=== PATIENT | female | born 1940 | race Caucasian/White ===

== ENCOUNTER 2019-04-10 15:17 | Emergency (ER) | payer MEDICARE, OTHER, SELFPAY ==
[2019-04-10 12:58] VITALS: BP 189/88; PULSE 57; RESP 16; TEMP 36.8; O2SAT 92; BMI 26.6
--- NOTE | 2019-04-10 13:05 | CT_ITS ---
WS: [id number] CT HEAD TECHNIQUE: Noncontrast CT of the head obtained from the skullbase to the vertex. CLINICAL INFORMATION: fall injury COMPARISON: CT 7 7,015 DLP: 790.[address] scans at [facility] use at least one of these dose optimization techniques: automat ed exposure control; mA and/or kV adjustment per patient size (includes targeted exams where dose is matched to clinical indication); or iterative reconstruction. FINDINGS: No evidence of intracranial hemorrhage or mass effect. Soft tissue and scalp hematoma overlying the l eft frontal lobe and superior orbit. No visualized fractures. Sinuses and mastoid air cells are well aerated. Right supraclinoid ICA embolization coils. Associated beam hardening artifact. Mild small vessel oconnell ges. Mild parenchymal Loss. Normal posterior fossa. Vascular calcification. Ventricular system and basal cisterns are paten t. Paranasal sinuses and mastoid air cells are well aerated. . Message left for Alma Diaz M.D. at 04/10/2019 2:[address]/CT head wo con* [id number] IMPRESSION: 1. No evidence of intracranial hemorrhage or mass effect. 2. Large left frontal scalp hematoma. No visualized fractures. 3. Right supraclinoid ICA embolization coils. 4. Mild small vessel changes. Mild parenchymal volume loss. 5.
--- NOTE | 2019-04-10 13:05 | XR_ITS ---
WS: [id number] Humerus LEFT TECHNIQUE: 2 views of the left humerus CLINICAL INFORMATION: trauma COMPARISON: None. FINDINGS: Angulated displaced fracture involving the midshaft left humerus. Lateral angulation of the distal fr agment with approximately one shaft width displacement. Soft tissue edema. Normal visualized AC joint . XR/[place] [id number] IMPRESSION: Angulated displaced fracture mid shaft left humerus with lateral angulation of the distal fragment
--- NOTE | 2019-04-10 13:05 | W.ED.FALL ---
HPI - Fall General: Chief Complaint: Fall Stated Complaint: Fall History of Present Illness: HPI Narrative: Patient reports tripping and falling in the bathroom over a rug and hurting her left upper arm. Patient was given fentanyl 100 mcg in route by ambulance. Patient also hit the side of her head against the tub. Patient denied any loss of consciousness. Patient appears well. Patient appears in mild to moderate pain. Patient reports as long as she holds her left upper arm in a bent position across her chest she is able to control the pain. Review of Systems General: Reports: 10 or more systems reviewed and unremarkable except in HPI and below Musc: Reports: extremity pain (left upper arm) and extremity swelling (left upper arm) PFSH ED PFSH: Statuses (acute, chronic, etc) shown below reflect problem list status as previously entered and may not be historically accurate Social History Smoking and tobacco status: never smoked Physical Exam Const: COMMON NORMALS: no apparent distress and oriented x3 GENERAL APPEARANCE: cooperative HENMT: COMMON NORMALS: external ears normal, EAC's normal, TM's normal bilaterally and external nose normal HEAD & SCALP: contusion (left forehead) HEAD IMAGES: 1. hemotoma, contusion FACE & SINUS: normal facial exam NOSE: external nose normal GENERAL EAR: hearing not grossly impaired EXTERNAL EAR: Yes external ears normal EXTERNAL AUDITORY CANAL: EAC's normal TYMPANIC MEMBRANE: TM's normal bilaterally MOUTH: oral and palatal mucosa normal THROAT: posterior oropharynx normal Eye: COMMON NORMALS: PERRL and EOMs intact bilaterally PUPIL: Yes PERRL Neck/C-Spine: COMMON NORMALS: full ROM and no lymphadenopathy Lymph: LYMPHATIC: no lymphedema noted Chest: COMMONS NORMALS: inspection of chest normal and palpation of chest normal Resp: COMMON NORMALS: normal respiratory effort and clear to auscultation bilaterally AUSCULTATION: clear to auscultation bilaterally Cardio: COMMON NORMALS: regular rate and regular rhythm RATE: regular rate RHYTHM: regular rhythm GI: COMMON NORMALS: normal to inspection, nondistended, normoactive bowel sounds and non-tender : COMMON NORMALS: Yes no CVA tenderness BLADDER/KIDNEY EXAM: Yes no CVA tenderness Back/Pelvis: COMMON NORMALS: no CVA tenderness and thoracic and lumbar spine normal to inspection Extremity: GENERAL: Yes edema (left distal upper arm) LEFT UPPER EXTREMITY: Yes upper arm (distal deformity to left upper arm) Neuro: COMMON NORMALS: oriented x3, moves all extremities and no focal motor deficits Psych: COMMON NORMALS: mental status grossly normal and cooperative Skin: COMMON NORMALS: no rashes or lesions noted GENERAL SKIN EXAM: no rashes or lesions noted Course ED course: 1344, Discussed with abnormal xray of humerus, recommended discussion with Dr. Pierre, electronic intelligence officer orthopedist. wjw 1354, Dr. Pierre contacted will come to see patient in the ER for further evaluation and discussion with patient for further treatment. wjw 1427, Dr. Pierre seen patient with recommendation for treatment. wjw Vital Signs: Vital signs: Vital Signs Temperature 98.2 F 04/10/19 12:58 Pulse Rate 57 L 04/10/19 12:58 Respiratory Rate 18 04/10/19 14:35 Blood Pressure 189/88 04/10/19 12:58 Pulse Oximetry 98 04/10/19 14:35 MDM - Fall MDM Narrative: Medical decision making narrative: Patient comes in today for complaints of fall injury. Patient had side of the tub with her head and also hurt her left upper arm. Exam noted deformity to the left upper arm. Pulses were intact distally. Neurovascular check was normal. Patient also had a hematoma to the left frontal scalp area. Differential diagnosis includes skull fracture, intracranial bleeding, fracture of the humerus, contusion, abrasions. X-ray of the left upper arm noted a shaft humeral fracture. CT of head noted no intracranial bleeding or skull fracture. Laboratory values were insignificant. Reviewed exam with Dr. Mejia who recommended consult with Dr. Pierre for fracture of the humerus. Dr. Pierre came over and evaluated patient recommended splinting and follow-up in his office. Family was agreeable to plan as well as patient. Patient was splinted and reported improvement in pain. Patient was discharged with prescription for pain medication and instructed to use stool softener to prevent constipation. Patient reported understanding. Lab Data: Labs: Lab Results 04/10/19 04/10/19 Range/Units 14:03 14:03 WBC 10.2 H (4.0-10.0) 10^3/ uL RBC 4.69 (4.1-5.3) 10^6/u L Hgb 13.9 (11.5-15.3) g/dL Hct 43.6 (37.0-47.0) % MCV 93.0 (81-99) fL MCH 29.6 (28.0-34.0) pg MCHC 31.9 (30.0-36.0) g/dL RDW 12.5 (12.1-15.1) % Plt Count 230 (130-400) 10^3/c mm MPV 11.3 H (7.4-10.4) fL Neut % (Auto) 78.9 % Lymph % (Auto) 14.5 % Davison % (Auto) 5.6 % Eos % (Auto) 0.4 % Baso % (Auto) 0.3 % Neut # (Auto) 8.0 H (1.8-7.7) 10^3/u L Lymph # (Auto) 1.5 (0.8-4.8) 10^3/u L Davison # (Auto) 0.6 (0.2-0.9) 10^3/u L Eos # (Auto) 0.0 (0.0-0.8) 10^3/u L Baso # (Auto) 0.0 (0.0-0.1) 10^3/u L Nucleated RBC % (a uto) 0 % Nucleated RBCs # 0.0 /100WBC Sodium 137 (136-145) mmol/L Potassium 3.4 L (3.5-5.1) mmol/L Chloride 100 (98-107) mmol/L Carbon Dioxide 24 (22-29) mmol/L Anion Gap 16.4 (5-19) BUN 12 (8-23) mg/dL Creatinine 0.6 (0.5-0.9) mg/dL Glucose 134 H (74-106) mg/dL Calcium 10.1 (8.8-10.2) mg/Dl Total Bilirubin 0.4 (0.15-1.2) mg/dL AST 18 (0-32) U/L ALT 16 (0-33) U/L Alkaline Phosphata se 70 (35-105) IU/L Total Protein 7.0 (6.6-8.7) g/dL Albumin 4.3 (3.5-5.2) g/dL Globulin 2.7 (1.3-4.6) g/dL Discharge Plan Discharge Patient Disposition: Home, Self-Care Clinical Impression: Fall from other slipping, tripping, or stumbling Closed left humeral fracture Qualifiers: Encounter type: initial encounter Humerus Location: shaft Fracture morphology: transverse Fracture alignment: displaced Qualified Code(s): S42.322A - Displaced transverse fracture of shaft of humerus, left arm, initial encounter for closed fracture Hematoma of frontal scalp Qualifiers: Encounter type: initial encounter Qualified Code(s): S00.03XA - Contusion of scalp, initial encounter Condition: Stable Prescriptions: New hydrocodone-acetaminophen 5-325 mg tablet 1 tab PO Q4H PRN (Reason: pain) Qty: 20 RF: 0 ondansetron HCl 4 mg tablet 4 mg PO Q8H PRN (Reason: nausea and vomiting) Qty: 10 RF: 0 Discharge Orders: Discharge Order (Routine); Ordered 04/10/19 Ordered By: Yobany Estes Referrals: Gabriel Pelayo MD [Primary Care Provider] - Discharge Diet: Usual diet Discharge Activity: Resume usual activity Patient Instructions: Arm Fracture in Adults (ED) Activity Restrictions/Additional Instructions: Home and rest Activity as tolerated Wear splint and sling as directed Follow-up with Dr. Pierre on Saturday as scheduled Return to ER as needed for any concerns Coding Level of Care Code ED Security Advisor for Jami Fwd Exam Problem Focused
[2019-04-10 14:14] VITALS: RESP 18; O2SAT 98
[2019-04-10] MEDS: fentaNYL 50 mcg/mL INJ 2mL IVP (14:14)
[2019-04-10 14:17] LABS: Basophils % 0.3 %; Eosinophils % 0.4 %; Hematocrit 43.6 % (37.0-47.0); Hemoglobin 13.9 g/dL (11.5-15.3); Lymphocytes # 1.5 10^3/uL (0.8-4.8); Lymphocytes % 14.5 %; Mean Corpuscular HGB Conc 31.9 g/dL (30.0-36.0); Mean Corpuscular Hemoglobin 29.6 pg (28.0-34.0); Mean Platelet Volume 11.3 fL (7.4-10.4); Monocytes # 0.6 10^3/uL (0.2-0.9); Monocytes % 5.6 %; Neutrophils % 78.9 %; Nucleated Red Blood Cells % 0 %; Platelet Count 230 10^3/cmm (130-400); Red Blood Count 4.69 10^6/uL (4.1-5.3); Red Cell Distribution Width 12.5 % (12.1-15.1); White Blood Count 10.2 10^3/uL (4.0-10.0)
[2019-04-10 14:35] VITALS: RESP 18; O2SAT 98
[2019-04-10] MEDS: morphine 4 mg/mL SDV 1 mL 2 MG IVP (14:35)
[2019-04-10] MEDS: ondansetron 2 mg/ML SDV 2 mL 4 MG IVP ×2 (14:37→15:26)
[2019-04-10 14:39] LABS: Alanine Aminotransferase 16 U/L (0-33); Albumin Level 4.3 g/dL (3.5-5.2); Alkaline Phosphatase 70 IU/L (35-105); Anion Gap 16.4 (5-19); Aspartate Amino Transferase 18 U/L (0-32); Blood Urea Nitrogen 12 mg/dL (8-23); Calcium 10.1 mg/Dl (8.8-10.2); Carbon Dioxide 24 mmol/L (22-29); Chloride 100 mmol/L (98-107); Globulin 2.7 g/dL (1.3-4.6); Glucose 134 mg/dL (74-106); Potassium 3.4 mmol/L (3.5-5.1); Sodium 137 mmol/L (136-145); Total Bilirubin 0.4 mg/dL (0.15-1.2)
[2019-04-10 15:27] VITALS: BP 124/68; PULSE 72; RESP 18; O2SAT 96
--- NOTE | 2019-04-13 08:10 | DCPLANNER ---
district manager was asked to schedule a follow up appointment for patient with ortho. district manager called ortho, spoke with Pat, gave clinic patients information. district manager was told that patients information would be printed and reviewed. Clinic will call director of casework and patient with appointment information.
--- NOTE | 2019-04-14 14:38 | DCPLANNER ---
Patient had an appointment scheduled for 04.14.[address] Pierre at ortho. Patient attended the appointment.
== END 2019-04-10 15:29 | disposition home or self-care (01) ==
LOC: ER 15:33
PROVIDERS: Nurse Practitioner Family; Emergency Provider Emergency Medicine; Family Provider Family Medicine; PCP Family Medicine
DX: S00.03XA Contusion of scalp, initial encounter (principal); S42.322A Displaced transverse fracture of shaft of humerus, left arm, initial encounter for closed fracture; W18.09XA Striking against other object with subsequent fall, initial encounter; Y92.002 Bathroom of unspecified non-institutional (private) residence as the place of occurrence of the external cause
CPT/HCPCS: 36415; 70450; 73060; 80053; 85025; 96374; 96375; 99281; J2270; J2405; J3010

== ENCOUNTER → 2019-04-14 10:03 | Outpatient (BNVA) | payer MEDICARE, OTHER, SELFPAY | PROVIDERS: Family Provider Family Medicine; PCP Family Medicine; Referring Provider Nurse Practitioner Family; Visit Provider Orthopaedic Surgery | DX: S42.492A Other displaced fracture of lower end of left humerus, initial encounter for closed fracture (principal); X58.XXXA Exposure to other specified factors, initial encounter | CPT/HCPCS: 73060 ==

== ENCOUNTER → 2019-05-12 13:09 | Outpatient (BNVA) | payer MEDICARE, OTHER, SELFPAY | PROVIDERS: Family Provider Family Medicine; PCP Family Medicine; Visit Provider Orthopaedic Surgery | DX: S42.492A Other displaced fracture of lower end of left humerus, initial encounter for closed fracture (principal); X58.XXXA Exposure to other specified factors, initial encounter | CPT/HCPCS: 73060 ==

== ENCOUNTER → 2019-06-09 13:24 | Outpatient (BNVA) | payer MEDICARE, OTHER, SELFPAY | PROVIDERS: Family Provider Family Medicine; PCP Family Medicine; Visit Provider Orthopaedic Surgery | DX: S42.302A Unspecified fracture of shaft of humerus, left arm, initial encounter for closed fracture (principal); X58.XXXA Exposure to other specified factors, initial encounter | CPT/HCPCS: 73060 ==

== ENCOUNTER 2020-10-29 06:00 | Outpatient (CLI) | payer MEDICARE, OTHER, SELFPAY ==
[2020-10-29 07:25] VITALS: BP 145/84; PULSE 71; RESP 18; TEMP 36.6; O2SAT 98; BMI 29.2
--- NOTE | 2020-10-29 07:55 | A.OFFVIS_ITS ---
Patient Information Referred by: Dr. Matos Symptom onset date: 10/21/20 COVID 19 common symptoms: positive fever(s), chills, cough, fatigue, body aches, headache(s), loss of sense of smell and/or taste, nasal congestion and nausea Severity: moderate Treatment prior to arrival: none Other details: Results from [employer] verified by myself [facility] COVID test results: No Data to Display outside results available, scanned Criteria/Plan Inclusion/Exclusion Criteria weight >/= 40kg, + direct test </= 10 days ago and symptom onset </= 10 days ago age >/= 65 not requiring hospitalization, not requiring oxygen (if not chronically on oxygen) and no increase oxygen requirement (if chronically on oxygen) Patient education patient/family/caregiver received/reviewed fact sheet, Emergency Use Authorization/unapproved drug status discussed with patient/family/caregiver, alternatives to this treatment discussed with patient/family/caregiver, risks and benefits of medication reviewed with patient/family/caregiver, patient/family/caregiver given opportunity for questions, which were answered and patient consents to receiving Monoclonal Antibody Treatment Plan for treatment Meets criteria for Monoclonal Antibody infusion
--- NOTE | 2020-10-29 10:41 | PC.NURSE ---
pt left by POV. Pt driving.
== END 2020-10-29 06:01 | disposition home or self-care (01) ==
LOC: OPS 08-10 14:55
PROVIDERS: PCP Family Medicine; Visit Provider Family Medicine
DX: U07.1 COVID-19 (principal)
CPT/HCPCS: 96365

== ENCOUNTER → 2021-11-06 14:49 | Outpatient (BNVA) | payer MEDICARE, OTHER, SELFPAY | PROVIDERS: PCP Family Medicine; Visit Provider Podiatrist Foot & Ankle Surgery | DX: R52 Pain, unspecified (principal); M19.072 Primary osteoarthritis, left ankle and foot; M21.612 Bunion of left foot | CPT/HCPCS: 73630; 99204 ==

== ENCOUNTER → 2021-11-17 09:03 | Day surgery (SDC) | payer MEDICARE, OTHER, SELFPAY ==
[2021-11-16 11:00] VITALS: BMI 31.6
[2021-11-17] VITALS (10 sets, daily range): BP systolic 121–169; BP diastolic 78–115; PULSE 51–63; RESP 12–18; TEMP 36.1–36.6; O2SAT 91–95
--- NOTE | 2021-11-17 | SCC_ITS ---
Procedure done: Bunionectomy with double osteotomy left foot CPT code 86057 2 seconds of fluoroscopic guidance, for a cumulative dose of 0.04 mGy, was provided to Dr. Hernandez by the radiology department. C-arm images of the LEFT foot were saved for the patient's permanent record. [facility]
--- NOTE | 2021-11-17 06:24 | W.PM.OPSUD ---
Surgery/Procedure H&P Update DATE OF PROCEDURE: November 17, 2021 DATE H&P PERFORMED: 11/06/21 CHANGES TO PREVIOUS DOCUMENTATION: None PRIMARY INDICATION FOR PROCEDURE: Painful left bunion PLANNED PROCEDURE: Operation Date: 11/17/21 10:40 Proposed Procedures p Left bunionectomy 29321,M21.612(Left) - Pantera Hernandez DPM
--- NOTE | 2021-11-17 06:25 | P.OP_ITS ---
Operative Report Date of procedure: November 17, 2021 Pre-op diagnosis: Left bunion Post-op diagnosis: left bunion Post-op findings: None Procedure done: Bunionectomy with double osteotomy left foot CPT code 68939 Implants: [place] 28 3 mm x 16 mm headed partially-threaded cannulated screw and [place] 28 10mm x 10 mm step-off staple at the Ifeanyi osteotomy, 3-0 Vicryl, 4-0 Vicryl, 4-0 nylon 10 cc of Exparel with 10 cc of saline Specimens removed/disposition: None Pathology: None Surgeon: Pantera Hernandez D.P.M. Blind Hooker: Nelson Estimated blood loss: 5 29 IV fluids: None Urine output: 0 Complications: None Findings: None Brief History: Patient has failed conservative treatment management for several years that has built up to this point where she is wishing to discuss surgical correction of her left painful bunion deformity.? Management at home has consisted of wider shoes, padding and spacing, activity modifications, topical and oral anti- inflammatories without success.? Bunionectomy with double osteotomy with risks including but not limited to pain, bleeding, numbness, infection, hardware failure, delayed union, malunion, nonunion, recurrence of bunion deformity.? Failure to alleviate pain, reduced dorsiflexion and plantarflexion at the left first metatarsal phalangeal joint.? Chronic numbness and swelling, altered mechanics, hallux varus and need for advanced bracing.? Patient is agreeable wishes to proceed. Informed consent signed by patient and myself. Has been n.p.o. since midnight. Initialed her left foot. No guarantees written, expr essed or implied. Left Vaughn bunionectomy possible Ifeanyi 11/17/2021, outpatient, local [facility], [facility], supine, 45 minutes Procedure: Under mild sedation the patient was brought to the operating room and remained on the [facility] in supine position. A padded timeout was performed. Anesthesia was then administered by the anesthesia service. Local anesthesia was injected by myself consisting of 30 cc of 0.5% Marcaine plain in a left Flores block fashion. Well-padded pneumatic tourniquet applied to the left ankle. The left lower extremity was then scrubbed, prepped and draped utilizing normal aseptic technique. Left foot was exanguinated with an Esmarch bandage and the tourniquet inflated to 250 mmHg. Attention was directed to the dorsal medial aspect of the left first metatarsal phalangeal joint where a linear longitudinal incision was made through skin with a #15 blade with dissection carried down through subcutaneous tissue to the layer joint capsule and periosteum utilizing a combination of blunt and sharp technique. Care was taken to retract and preserve neurovascular and tendinous structures. All bleeders were ligated and cauterized as necessary. A linear capsulotomy was performed and the medial eminence of the first metatarsal head was transected with a sagittal saw and passed from operative field. Next utilizing a sagittal saw a chevron osteotomy was performed apex oriented distally with the head of the first metatarsal left foot translated laterally into a more anatomically corrected position followed by fixation utilizing standard AO technique, osteotomy was fixated utilizing a [place] 28 cannulated screw 16 mm x 3 mm in diameter and partially threaded. Medial shelf was transected, passed from operative field and all rough edges smoothed. Attention was then directed to the medial aspect of the proximal phalanx where a Ifeanyi osteotomy was performed maintaining a lateral cortical hinge followed by fixation with a [place] 28 10mm x 10mm step-off nitinol staple with excellent bony apposition and compression noted without violating the first metatarsal phalangeal joint confirmed with direct visualization as well as intraoperative fluoroscopy in all 3 standard views. Incision was then flushed with copious amounts of sterile skin solution. Smooth range of motion of the first metatarsal plantar joint appreciated as well as reduction of the bunion deformity and a more rectus medial column was appreciated. Capsule closed with 3-0 Vicryl, subcutaneous tissue with 4-0 Vicryl and skin with 4-0 nylon. Expa rel was infiltrated in a grid like fashion a total of 10 cc expanded with 10 cc of saline. Dressings consisting of Adaptic, sterile 4 x 4's, Kerlix and Benjamin wrap were applied and tourniquet was deflated. Postop shoe and cam boot sent with the patient for protected weightbearing. She was sent home with a cam boot with vital signs stable and vascular status intact. Prescribed hydrocodone 5/325 mg to take every 4-6 hours as needed for pain. Advised 81 mg aspirin once daily for the next 6 weeks to potentially reduce the risk of deep vein thrombosis. Was given my cell phone number to contact with any postoperative questions or concerns.
[2021-11-17] MEDS: sodium chloride 0.9% 1,000 ML 30 ML IV (10:30)
[2021-11-17] MEDS: gabapentin 300 mg Capsule PO (10:30)
[2021-11-17] MEDS: CELEcoxib 200 mg Capsule 400 MG PO (10:30)
[2021-11-17] MEDS: ceFAZolin 2,000 MG in sodium chloride 0.9% (plus) 50 ML 100 MG IV (10:32)
--- NOTE | 2021-11-17 11:45 | XR_ITS ---
WS: [id number] Left foot, 3 views, 11/17/2021 Clinical Data: Postop Comparison: Left foot, 11/06/2021. Findings: There is an osteotomy of the distal left first metatarsal of the proximal phalanx of the left first t oe. There is an orthopedic screw aiding in the metatarsal osteotomy. There is a plate and 2 screws on the medial aspect of the proximal phalanx osteotomy. XR/XR foot LT min 3V* [id number] Impression: Osteotomies of the distal left first metatarsal and of the proximal phalanx of the left first toe
--- NOTE | 2021-11-17 11:50 | P.ANESASSM_ITS ---
Pre-Anesthetic Assessment Height/Weight: Height 1.63 m Weight 83.461 kg Temp Pulse Resp BP Pulse Ox O2 Del Method 97.1 F L 58 L 16 141/79 91 11/17/21 11:22 11/17/21 11:37 11/17/21 11:37 11/17/21 11:37 11/17/21 11:37 11/17/21 11:37 Preop Diagnosis: Left bunion Operation Date: 11/17/21 10:40 Proposed Procedures p Left bunionectomy 76876,M21.612(Left) - Pantera Hernandez DPM Familial anesthetic complications: None Was Beta Marce taken within 24 hours: N/A Was Clonidine taken within 24 hours: N/A Last intake: Intake Last Liquid Date 11/16/21 Last Liquid Time 19:00 Last Solid Date 11/16/21 Last Solid Time 23:30 Social No alcohol and No tobacco Exam alert, oriented x 3, clear to auscultation bilaterally and regular rate & rhythm Airway Submandibular: within normal limits Cervical ROM: within normal limits Mallampati: Class II Dentition: full CV/HEM Hypertension Metabolic Thyroid Disease Anesthetic Plan ASA status: 2 Anesthesia: MAC Medications/Allergies Home Medications Medication Instructions Recorded Confirmed Last Taken Type Apple Cider Vinegar 3 cap PO DAILY 04/14/19 11/17/21 11/16/21 20:00 History levothyroxine 50 mcg tablet 50 mcg PO DAILY 04/14/19 11/17/21 11/16/21 07:00 History (Synthroid) naproxen sodium 220 mg capsule 220 mg PO Q8H PRN Pain 04/14/19 11/17/21 11/16/21 20:00 History (Aleve) charley #1 ea 11/06/21 11/16/21 Unknown Rx ascorbic acid (vitamin C) 100 mg 100 mg PO DAILY 11/16/21 11/17/21 11/16/21 20 :00 History tablet (Vitamin C) aspirin 81 mg capsule 81 mg PO DAILY 11/16/21 11/17/21 11/16/21 20:00 History cholecalciferol (vitamin D3) 100 100 mcg PO DAILY 11/16/21 11/17/21 11/16/21 20:00 History mcg (4,000 unit) capsule hydrochlorothiazide 12.5 mg tablet 12.5 mg PO DAILY 11/16/21 11/17/21 11/16/21 20:00 History losartan 50 mg tablet 50 mg PO DAILY 11/16/21 11/17/21 11/16/21 20:00 History phenazopyridine 95 mg tablet 190 mg PO DAILY 11/16/21 11/17/21 11/16/21 20:00 History sennosides 8.6 mg tablet (senna) 34.4 mg PO DAILY 11/16/21 11/17/21 11/16/21 20:00 History zinc 50 mg capsule 50 mg PO DAILY 11/16/21 11/17/21 11/16/21 20:00 History cholecalciferol (vitamin D3) 25 11/17/21 Unknown History mcg (1,000 unit) tablet (Vitamin D3) Allergies Allergy/AdvReac Type Severity Reaction Status Date / Time No Known Allergies Allergy Verified 11/16/21 10:53 Current Medications Generic Name Dose Route Start Last Admin Trade Name Freq PRN Reason Stop Dose Admin Sodium Chloride 1,000 mls @ 30 mls/hr 11/17/21 10:00 11/17/21 10:30 Sodium Chloride 0.9% IV 11/18/21 09:59 30 mls/hr .Q24H MAXWELL Administration PFSH Anesthesia Social History Smoking and tobacco status: never smoked Data Anesthesia Cardiac Studies: No Data to Display
--- NOTE | 2021-11-17 14:55 | ANE.PACU2 ---
Inpatient post-anesthesia follow up: Airway intact: Yes Vital signs: Temperature 97.5 F Pulse Rate 51 Respiratory Rate 17 Blood Pressure 169/90 Pulse Oximetry 95 Oxygen Delivery Me thod Room Air Oxygen Flow Rate Fraction of Inspir ed Oxygen Hydration adequate: Yes Nausea and vomiting: No Pain level: 2 Mental status: Baseline
== END | disposition home or self-care (01) ==
PROVIDERS: PCP Family Medicine; Visit Provider Podiatrist Foot & Ankle Surgery
PROC: (CPT 28296; principal; 2021-11-17 10:40)
DX: M21.612 Bunion of left foot (principal); I10 Essential (primary) hypertension
CPT/HCPCS: 28299; 73630; 76000; C1713; C9290; J2405; J2704; J3010; J3490; J7030

== ENCOUNTER → 2021-11-30 14:14 | Outpatient (BNVA) | payer MEDICARE, OTHER, SELFPAY | PROVIDERS: PCP Family Medicine; Visit Provider Podiatrist Foot & Ankle Surgery | DX: Z98.890 Other specified postprocedural states (principal) | CPT/HCPCS: 73630; 99024 ==

== ENCOUNTER → 2021-12-14 14:57 | Outpatient (BNVA) | payer MEDICARE, OTHER, SELFPAY | PROVIDERS: PCP Family Medicine; Visit Provider Podiatrist Foot & Ankle Surgery | DX: Z98.890 Other specified postprocedural states (principal) | CPT/HCPCS: 73630; 99024 ==

== ENCOUNTER → 2021-12-28 14:15 | Outpatient (BNVA) | payer MEDICARE, OTHER, SELFPAY | PROVIDERS: PCP Family Medicine; Visit Provider Podiatrist Foot & Ankle Surgery | DX: Z98.890 Other specified postprocedural states (principal) | CPT/HCPCS: 73630; 99024 ==

== ENCOUNTER → 2022-02-01 14:01 | Outpatient (BNVA) | payer MEDICARE, OTHER, SELFPAY | PROVIDERS: PCP Family Medicine; Visit Provider Podiatrist Foot & Ankle Surgery | DX: Z98.890 Other specified postprocedural states (principal) | CPT/HCPCS: 73630; 99024 ==

== ENCOUNTER → 2022-10-11 09:59 | Outpatient (BNVA) | payer MEDICARE, OTHER, SELFPAY | PROVIDERS: PCP Family Medicine; Visit Provider Podiatrist Foot & Ankle Surgery | DX: M21.611 Bunion of right foot (principal); L60.0 Ingrowing nail; S90.32XA Contusion of left foot, initial encounter; W19.XXXA Unspecified fall, initial encounter; Y92.002 Bathroom of unspecified non-institutional (private) residence as the place of occurrence of the external cause | CPT/HCPCS: 73630; 99214 ==